=== PATIENT | male | born 1945 ===

== ENCOUNTER 2018-10-15 14:54 | Inpatient (IN) | payer OTHER ==
[~2018-10-15] VITALS: Ht 170.2 cm; Wt 49.9 kg
[~2018-10-15 14:54] MED LIST: ALBUTEROL0.63 MG/3; AMLODIPINE; BICALUTAMIDE50 MG; BUDESONIDE0.5 MG/2 M
[2018-10-16] MEDS ORDERED: SYNTHROID50 MCG (15:56)
[2018-10-24] MEDS ORDERED: AMLODIPINE BESYL5 MG PO (18:38)
== END 2018-11-29 10:04 | disposition home or self-care (01) | DRG 177 ==
LOC: ER 14:54 → SURH 10-16 15:26 → ICU-2 10-16 15:26 → ICU 10-16 15:26 → SURH 11-02 20:50
PROVIDERS: ADMIT Specialist
PROC: 3E0F7GC Introduction of Other Therapeutic Substance into Respiratory Tract, Via Natural or Artificial Opening (ICD-10-PCS; 2018-10-16)
PROC: B020ZZZ Computerized Tomography (CT Scan) of Brain (ICD-10-PCS; 2018-10-16)
PROC: 4A033R1 Measurement of Arterial Saturation, Peripheral, Percutaneous Approach (ICD-10-PCS; 2018-10-16)
PROC: 0T9B70Z Drainage of Bladder with Drainage Device, Via Natural or Artificial Opening (ICD-10-PCS; 2018-10-16)
PROC: 0CJS8ZZ Inspection of Larynx, Via Natural or Artificial Opening Endoscopic (ICD-10-PCS; principal; 2018-10-17)
PROC: 3E0G76Z Introduction of Nutritional Substance into Upper GI, Via Natural or Artificial Opening (ICD-10-PCS; 2018-10-17)
PROC: 02HV33Z Insertion of Infusion Device into Superior Vena Cava, Percutaneous Approach (ICD-10-PCS; 2018-10-17)
PROC: 8E0ZXY6 Isolation (ICD-10-PCS; 2018-10-19)
PROC: BW24ZZZ Computerized Tomography (CT Scan) of Chest and Abdomen (ICD-10-PCS; 2018-10-27)
PROC: 4A12X4Z Monitoring of Cardiac Electrical Activity, External Approach (ICD-10-PCS; 2018-10-31)
PROC: 30233N1 Transfusion of Nonautologous Red Blood Cells into Peripheral Vein, Percutaneous Approach (ICD-10-PCS; 2018-11-06)
DX: J85.0 Gangrene and necrosis of lung (principal); J96.21 Acute and chronic respiratory failure with hypoxia; B37.1 Pulmonary candidiasis; J44.1 Chronic obstructive pulmonary disease with (acute) exacerbation; G40.89 Other seizures; G72.81 Critical illness myopathy; J95.09 Other tracheostomy complication; K94.23 Gastrostomy malfunction; R13.14 Dysphagia, pharyngoesophageal phase; Z87.891 Personal history of nicotine dependence; A56.3 Chlamydial infection of anus and rectum; Z22.4 Carrier of infections with a predominantly sexual mode of transmission; Z85.21 Personal history of malignant neoplasm of larynx; B96.1 Klebsiella pneumoniae [K. pneumoniae] as the cause of diseases classified elsewhere; E03.8 Other specified hypothyroidism; D63.8 Anemia in other chronic diseases classified elsewhere; Z08 Encounter for follow-up examination after completed treatment for malignant neoplasm; B96.29 Other Escherichia coli [E. coli] as the cause of diseases classified elsewhere; B96.5 Pseudomonas (aeruginosa) (mallei) (pseudomallei) as the cause of diseases classified elsewhere; B95.62 Methicillin resistant Staphylococcus aureus infection as the cause of diseases classified elsewhere; I11.9 Hypertensive heart disease without heart failure; I25.10 Atherosclerotic heart disease of native coronary artery without angina pectoris

== ENCOUNTER 2019-04-15 21:30 | Emergency (ER) | payer OTHER ==
[~2019-04-15] VITALS: Ht 149.9 cm; Wt 40.8 kg
[~2019-04-15 21:30] MED LIST changes: +AMLODIPINE BESYL5 MG PO; +SYNTHROID50 MCG
== END 2019-04-16 02:02 ==
LOC: ER 21:30
DX: R06.02 Shortness of breath (principal)